=== PATIENT | female | born 1955 | race Caucasian/White ===

== ENCOUNTER → 2024-05-11 | Outpatient (CLI) | payer BC, SELFPAY ==
[2024-05-11 10:28] LABS: Alanine Aminotransferase 19 U/L (10-49); Albumin, Serum 4.2 gm/dL (3.4-4.8); Alkaline Phosphatase 91 U/L (46-116); Anion Gap 4 (7-16); Aspartate Amino Transferase 21 U/L (0-34); BUN/Creatinine Ratio 27 Ratio (12-20); Bilirubin,Total 0.8 mg/dL (0.3-1.2); Blood Urea Nitrogen 19 mg/dL (9-23); Calcium 9.5 mg/dL (8.3-10.6); Calcium (Corrected) 9.5 mg/dL (8.5-10.1); Carbon Dioxide 27.9 mMol/L (20.0-31.0); Chloride 108 mMol/L (98-107); Creatinine (Component) 0.7 mg/dL (0.6-1.3); Digoxin 0.1 ng/mL (0.8-2.0); Globulin 2.1 gm/dL (2.3-3.5); Glucose 96 mg/dL (74-106); Osmolality,Calculated 281 (275-295); Potassium 4.9 mMol/L (3.4-5.1); Sodium 140 mMol/L (136-145); Total Protein 6.3 gm/dL (5.7-8.2); eGFR > 60 See Note
== END | disposition home or self-care (01) ==
PROVIDERS: PCP Internal Medicine; Referring Provider Internal Medicine Cardiovascular Disease; Visit Provider Internal Medicine Cardiovascular Disease
DX: I48.0 Paroxysmal atrial fibrillation (principal); I50.21 Acute systolic (congestive) heart failure
CPT/HCPCS: 36415; 80053; 80162; 83735

== ENCOUNTER 2024-06-08 10:39 | Day surgery (SDC) | payer BC, SELFPAY ==
[2024-06-07 10:03] VITALS: BMI 29.8
--- NOTE | 2024-06-07 10:57 | PC.NURSE ---
received new faxed order from dr ndiaye's office, no labs needed for procedure
[2024-06-08] VITALS (13 sets, daily range): BP systolic 112–149; BP diastolic 61–104; PULSE 63–106; RESP 12–20; TEMP 36.4–36.7; O2SAT 93–100
--- NOTE | 2024-06-08 11:30 | ECHO_ITS ---
Transesophageal Echo Report Ht (in): 64 Wt (lb): 174 Exam Location: [facility] Operator Status: Preadmit Casting Tester: Loretta Goodman Indications: Procedure Performed: BP: 132 / 80 HR: 96 Contrast: Agitated Saline Rhythm: Atrial fibrillation Technical Quality: Fair Total Dose(mL): Medications The patient is medicated with 4mg of intravenous Versed and 100mcg of intravenous Fentanyl. Complications There are no complications prior to, during or in recovery from the transesophageal ehocardiogram. FINDINGS Left Ventricle Normal left ventricular size, wall thickness. Low normal function. The ejection fraction is visually estimated at 45-50%. Right Ventricle The right ventricle is normal in size and systolic function. The estimated right ventricular systoli c pressure, 23mmHg. RAP 10 Left Atrium The left atrium is normal. Right Atrium The right atrium is mildly dilated. Atrial Septum The interatrial septum appears normal with no evidence of a shunt. Aorta The aorta is normal. Mitral Valve The mitral valve is normal. There is moderate mitral valve regurgitation. Aortic Valve The aortic valve is trileaflet and normal. There is trace aortic valve regurgitation. Tricuspid Valve The tricuspid valve is normal.There is mild to moderate tricuspid valve regurgitation. Pulmonic Valve There is mild pulmonic valve regurgitation. Vessels The pulmonary artery appears normal. The inferior vena cava pulmonary and hepatic veins appear arun l. Pericardium The pericardium is normal. There is no significant pericardial effusion. CONCLUSIONS Indication: Afib/cardioversion No evidence of PFOASD or LA/CHI thrombus Normal LV size.Low normal function. Estimated EF 45-50% Normal RV size and function LA mildly dilated. Pulomary veins systolic blunting flow. Moderate MR. Mild to moderate TR. Mild PI. Trace AI. Lexx Manzo (Electronically Signed) Final Date: 08 June 2024 17:43
[2024-06-08] MEDS: SODIUM CHLORIDE 0.9% 1000 ML 500 ML 100 ML IV (12:04)
[2024-06-08] MEDS: BENZOCAINE 20% (Hurricaine) SPRAY 1 DOSE TOP (12:05)
[2024-06-08] MEDS: MIDAZOLAM INJ 1 MG/ML VIAL 2 ML 5 MG IV (12:24)
[2024-06-08] MEDS: fentaNYL CIT INJ 50 mCg/ML AMP 2ML 150 MCG IV (12:25)
--- NOTE | 2024-06-08 14:46 | PC.NURSE ---
per patient she has no need to urinate and is not experiencing any discomfort. spouse and patient educated. both expressed verbal understanding.
--- NOTE | 2024-06-08 19:22 | PD.CARDOPNOT ---
Procedure Direct current cardioversion for uncontrolled atrial fibrillation Moderate Conscious Sedation with Versed and Fentanyl Date of Procedure 06/08/24 Pre Op Diagnosis Atrial Fibrillation Indication Atrial Fibrillation Post Op Diagnosis Normal Sinus Rhythm restored. Procedure Description Patient was in atrial fibrillation and ventricular rate was controlled came in for elective cardioversion as patient was having significant symptoms for the Afib. Decision was made to perform cardioversion for the patient after performing a transesophageal echocardiogram. Transesophageal echocardiogram was completed today and did not show any significant LA or CHI thrombus.? Please see SHIVANI report from today for rest of the findings.? Patient was already on anticoagulation with eliquis.. Patient was taken to the cardiac cath lab technologist for the SHIVANI and cardioversion, both anterior and posterior pads were placed.? Patient was given moderate sedation and received a total of 5 mg of Versed and 150 mcg of fentanyl prior to the procedure to provide him enough for sedation. A biphasic defibrillator was used.? A first attempt with 120 J failed, and a second attempt with 200 J synchronized shock was given and the patient converted successfully into normal sinus rhythm.? No complications during or after the procedure.? Patient is doing well.? His heart rate was stable between 50 to 70 bpm and appears to be normal sinus rhythm on the telemetry.? Recommend to perform an EKG to document normal sinus rhythm postprocedure.? Patient will be monitored in the cardiac cath lab technologist for the next 1-2 hours and will be discharged home if hemodynamically stable. Will adjust his medications for atrial fibrillation as outpatient. Estimated Blood Loss 0 Specimen(s) Specimen(s): None Conclusion Successful direct current cardioversion of Atrial Fibrillation to Normal Sinus Rhythm Recommendation Continue sotalol 40 mg BID if BP stable. Continue Eliquis 5 mg BID for anticaogulation. EKG to document NSR post procedure. No driving for 24 hours. Patient recommended to follow up in 1 week in the clinic. Surgical Staff Surgeon: Lexx Manzo MD
== END 2024-06-08 14:00 | disposition home or self-care (01) ==
PROVIDERS: PCP Internal Medicine; Referring Provider Internal Medicine Cardiovascular Disease; Visit Provider Internal Medicine Cardiovascular Disease
PROC: (CPT 92960; principal; 2024-06-08 12:00)
DX: I48.0 Paroxysmal atrial fibrillation (principal); Z01.810 Encounter for preprocedural cardiovascular examination; I50.21 Acute systolic (congestive) heart failure; I11.0 Hypertensive heart disease with heart failure; I25.10 Atherosclerotic heart disease of native coronary artery without angina pectoris; E66.9 Obesity, unspecified; Z68.31 Body mass index [BMI] 31.0-31.9, adult
CPT/HCPCS: 92960; 80048; 83735; 85025; 85610; 85730; 93312; 99152; J2250; J3010; J7030; A9270